=== PATIENT | male | born 1980 ===

== ENCOUNTER → 2023-10-13 10:59 | Outpatient (CLI) | payer OTHER, SELFPAY ==
--- NOTE | ~2023-10-13 | MR_ITS ---
MRI of the lumbar spine Clinical History: Degenerative disc disease Technique: Axial T2-weighted images, and sagittal T1-weighted, T2-weighted, and T2 fat-sat images wer e acquired. Findings: There is no fracture or subluxation of the lumbar spine. Vertebral bodies maintain normal h eight and alignment. No suspicious bone marrow signal abnormality seen. At L1-L2, there is mild degenerative change, with disc bulge and moderate facet arthropathy. There is moderate central canal stenosis/thecal sac compression. Right neural foramen is mildly narrowed. Lef t neural foramen preserved. At L2-L3, there is mild disc bulge with moderate facet arthropathy. There is mild to moderate central canal stenosis/thecal sac compression. Right neural foramen is mildly narrowed. Left neural foramen preserved. At L3-L4, there is mild disc bulge and moderate to advanced facet arthropathy. There is moderate cent ral canal stenosis/thecal sac compression. There is mild to moderate right neural foraminal narrowing , and mild left neural foraminal narrowing. At L4-L5, there is disc bulge and advanced facet arthropathy. There is moderate to severe central can al stenosis/thecal sac compression. There is severe right neural foraminal narrowing, and moderate to severe left neural foraminal narrowing. At L5-S1, there is advanced facet arthropathy without significant disc bulge or herniation. No darek spinal canal stenosis evident. There is preservation of bilateral neural foramina. Paravertebral soft tissues are unremarkable. Impression: Moderate to advanced degenerative spondylosis, as detailed above. Reviewed, dictated and finalized at [facility]. T SUBMERSIBLE Impression: Moderate to advanced degenerative spondylosis, as detailed above.
== END ==
PROVIDERS: PCP Family Medicine; Visit Provider Family Medicine
DX: M51.36 Other intervertebral disc degeneration, lumbar region (principal); M54.42 Lumbago with sciatica, left side; M47.896 Other spondylosis, lumbar region
CPT/HCPCS: 72148